=== PATIENT | female | born 2000 | race African-American/Black ===

== ENCOUNTER 2019-07-30 18:53 | Emergency (ER) | payer OTHER ==
[~2019-07-30] VITALS: Ht 154.9 cm; Wt 77.1 kg
[2019-07-30] MEDS ORDERED: TOPROL XL25 MG PO (18:59)
[2019-07-30] MEDS ORDERED: PROAIR HFA8.5 GM INH (19:00)
[2019-07-30 19:57] LABS: HEMOGLOBIN 8.7 gm/dL (12.0-15.0); POLYS 83.7 % (36.0-66.0)
[2019-07-30 20:00] LABS: ANION GAP 10 mmol/L (7-16); BUN 10 mg/dL (7-18); CHLORIDE 100 mmol/L (98-107); CO2 25 mmol/L (21-32); GLUCOSE 103 mg/dL (74-106); POTASSIUM 3.4 mmol/L (3.5-5.1); SODIUM 135 mmol/L (136-145)
[2019-07-30 20:02] LABS: ABSOLUTE NEUTROPHILS 9.5 thou/uL (1.4-8.2); BASOPHILS 0.4 % (0.0-2.0); EOSINOPHILS 0.3 % (0.0-3.0); HEMATOCRIT 28.7 % (37.0-47.0); LYMPHOCYTES 9.7 % (24.0-44.0); MCH 21.6 pg (26.0-34.0); MCHC 30.5 g/dL (28.0-37.0); MCV 71.1 fL (80.0-100.0); MONOCYTES 5.9 % (1.0-8.0); PLATELET COUNT 731 thou/uL (150-400); RBC 4.04 mil/uL (4.20-5.00); RDW 19.8 % (10.5-14.5); WBC 11.4 thou/uL (4.0-11.0)
[2019-07-30 20:14] LABS: ALBUMIN 3.8 g/dL (3.4-5.0); DIRECT BILIRUBIN < 0.1 mg/dL (<0.1-0.2); LIPASE 70 U/L (73-393); SGOT 11 U/L (15-37); SGPT 16 U/L (30-65); TOTAL BILIRUBIN 0.4 mg/dL (<0.1-1.0); TOTAL PROTEIN 8.2 g/dL (6.4-8.2)
[2019-07-30 20:41] LABS: PLATELET ESTIMATE INCREASED
[2019-07-30 20:42] LABS: ANISOCYTOSIS 2+; HYPOCHROMASIA 2+; MICROCYTES 1+
[2019-07-30] MEDS ORDERED: DOXYCYCLINE 10100 MG PO (21:51)
[2019-07-30 22:02] VITALS: BP 153/83
== END 2019-07-30 22:23 | disposition home or self-care (01) ==
LOC: ER 18:53
PROVIDERS: Nurse Practitioner
DX: N73.9 Female pelvic inflammatory disease, unspecified (principal); I10 Essential (primary) hypertension; J45.909 Unspecified asthma, uncomplicated; Z79.899 Other long term (current) drug therapy